=== PATIENT | female | born 2000 | race Caucasian/White ===

== ENCOUNTER 2018-10-22 13:01 | Emergency (ER) | payer MEDICAID | END 2018-10-22 13:14 | disposition left against medical advice (07) | DX: Z53.21 Procedure and treatment not carried out due to patient leaving prior to being seen by health care provider (principal) ==

== ENCOUNTER 2018-11-01 18:58 | Emergency (ER) | payer MEDICAID ==
--- NOTE | 2018-11-01 20:00 | EDPHY ---
General Time Seen by Provider: 11/01/18 19:18 Narrative: CLINICAL IMPRESSION: Pelvic discomfort ASSESSMENT/PLAN: 18-year-old female presents to the emergency department with concerns of vaginal bleeding in the setting of a recent IUD placement. Patient is concerned she might be . She took a negative test prior to IUD placement. She also finished a course of metronidazole several weeks ago and is concerned she may have another bacterial infection. Urine is negative, no signs of UTI, abdomen and pelvis soft with no focal peritoneal findings. Pelvic exam positive for bacterial vaginosis, patient refused STI testing, vaginal cultures pending. I contacted patient with her results and called in an antibiotic to the [facility] . [facility]. Warning signs for return to ED sooner outlined and discharge. DIFFERENTIAL DX: Differential diagnosis includes but not limited to vaginal bleeding secondary to recent IUD placement, hormone imbalance, dysfunctional uterine bleeding, ectopic , vaginal infection, STI, UTI ED PROCEDURES: See lab and/or imaging results below I called patient with her positive bacterial vaginosis results and she requested antibiotics sent to [facility] ED COURSE: 8:05 p.m.: Patient informed of her negative test and urine results. She is requesting a pelvic exam. No concern for STDs. Will check wet prep. CHIEF COMPLAINT: Pelvic discomfort, concern for HPI: 18-year-old female presents to the emergency department with complaints of vaginal bleeding in the setting of a recent IUD placement. Patient reports she had an IUD placed approximately 5 days ago and has had very irregular spotting and bleeding since that time. She reports seeing a"clot and string of tissue "from her vagina today. She is concerned she could be although had a negative test prior to IUD placement. She reports some vaginal pain and recently had bacterial vaginosis treated with metronidazole. She is monogamous with her partner and does not wish to have STI testing. She reports some mild lower pelvic cramping, no associated fever, chills, palpitations, nausea, vomiting or diarrhea PAST MEDICAL HISTORY: None reported See triage summary and nurse notes for addition applicable history Pertinent Past Surgical History: None reported Family History: Noncontributory Social History: Monogamous with her boyfriend REVIEW OF SYSTEMS: A full 10 point review of systems was negative except for those mentioned in HPI. PHYSICAL EXAM: General Appearance: Alert, oriented, appropriate, cooperative, NAD, well hydrated, non-toxic appearing, VSS, no hypoxia. Neck: Supple, nontender, no lymphadenopathy, no midline pain, FROM, no meningismus. Respiratory: There are no retractions, lungs are clear to auscultation. Cardiac: Regular rate and rhythm, no murmurs or gallops. Gastrointestinal: Abdomen is soft, nontender, bowel sounds normal, no masses/ hernia, no rigidity, guarding or focal peritoneal findings. : Brownish discharge noted from cervix. IUD strings noted and in place. No cervical motion tenderness or adnexal fullness. Skin: Warm, dry, no rashes, no nodules on palpation. MEDICAL DECISION MAKING: Patient was seen independently. Secondary supervising physician at time of evaluation was: Dr. Alvarez. Diagnosis: Bacterial vaginosis, dysfunctional uterine bleeding. New, requires workup Summary: See Assessment and Plan for summary of ED visit Clinical lab tests: ordered / reviewed. Patient Progress: Stable. - History Smoking Status: Light smoker - Objective Vital Signs: Initial Vital Signs Temperature (C) 36.4 C 11/01/18 19:02 Heart Rate 77 11/01/18 19:02 Respiratory Rate 18 11/01/18 19:02 Blood Pressure 114/67 11/01/18 19:02 O2 Sat (%) 99 11/01/18 19:02 O2 Delivery Mode Room Air Allergies/Adverse Reactions: amoxicillin Allergy (Verified 05/12/18 16:38) Penicillins Allergy (Verified 11/01/18 19:00) penic Allergy (Uncoded 11/01/18 19:00) Home Medications: Medication Instructions Recorded Gabapentin 11/01/18 Propranolol Sr 11/01/18 Sertraline HCl [Zoloft 100mg (*)] 100 mg PO DAILY 11/01/18 VYVANSE 11/01/18 Wellbutrin 100mg (*) 11/01/18 busPIRone 11/01/18 Laboratory Results: 11/01/18 11/01/18 11/01/18 20:34 19:32 19:30 Urine Color COLORLESS Urine Appearance CLEAR Urine pH 7.0 (5.0-7.5) Ur Specific [place] 1.001 L (1.002-1.030) Urine Protein NEGATIVE (NEGATIVE) Urine Ketones NEGATIVE (NEGATIVE) Urine Blood 2+ H (NEGATIVE) Urine Nitrate NEGATIVE (NEGATIVE) Urine Bilirubin NEGATIVE (NEGATIVE) Urine Urobilinogen NEGATIVE EU EU (0.2-1.0) Ur Leukocyte Esterase NEGATIVE (NEGATIVE) Urine RBC 1-3 /hpf /hpf (0-3) Urine WBC 1-3 /hpf /hpf (0-3) Ur Epithelial Cells TRACE /lpf /lpf (NONE-1+) Urine Bacteria TRACE /hpf H /hpf (NONE SEEN) Urine Glucose NEGATIVE (NEGATIVE) Urine Test NEGATIVE Trichomonas (Wet Prep) 1+ EPITHELIAL CELLS [place] species DNA Pending [place] DNA Probe Pending Trichomonas DNA Probe Pending Departure - Departure Disposition: Home, Routine, Self-Care Clinical Impression: Vaginal bleeding Condition: Good Instructions: Dysfunctional Uterine Bleeding (ED) Additional Instructions: DISCHARGE INSTRUCTIONS FROM YOUR DOCTOR Thank you for visiting our emergency department today. Please keep in mind that discharge from the emergency department does not mean that there is nothing wrong - it simply means that we have not identified an emergency condition that requires further evaluation or treatment in the hospital. You should always plan to follow up with primary care for re-evaluation of your condition in the next 2-3 days. If you have been referred to a specialist, please call as soon as possible (today or tomorrow) to schedule your follow up appointment at the appropriate time. YOUR URINE TEST IS NEGATIVE. YOU DO NOT HAVE A URINARY TRACT INFECTION. VAGINAL SWABS WERE GATHERED TONIGHT AND WE WILL CALL YOU WITH THESE RESULTS. PLEASE FOLLOW-UP WITH HER PRIMARY OBGYN OR [facility]ED [facility]. RETURN TO THE EMERGENCY DEPARTMENT FOR HEAVY VAGINAL BLEEDING, LIGHTHEADEDNESS, FAINTING EPISODES, SHORTNESS OF BREATH, SEVERE LOWER ABDOMINAL OR PELVIC PAIN, OR ANY OTHER CONCERNS. People present with illnesses and injuries in different ways, and it is always possible that we have missed something. You may always return for re-evaluation if symptoms worsen or if they are not improving or if you develop new/different symptoms. Again, thank you for choosing our emergency department. We hope that you feel better. Referrals: NONE *PRIMARY CARE P,. [Primary Care Provider] - As per Instructions
[2018-11-01 20:50] VITALS: BP 103/64
== END 2018-11-01 20:50 | disposition home or self-care (01) ==
DX: N93.9 Abnormal uterine and vaginal bleeding, unspecified (principal)